=== PATIENT | female | born 1985 | race Caucasian/White ===

== ENCOUNTER → 2021-06-08 | Outpatient (CLI) | payer OTHER ==
[2021-06-08 11:21] LABS: BASO % 0.8 % (0.0-2.0); EOS # 0.5 K/mm3 (0.0-0.7); GRAN # 1.9 K/mm3 (1.4-6.5); GRAN % 39.1 % (42.2-75.2); HEMATOCRIT 40.6 % (37.0-47.0); HEMOGLOBIN 13.9 g/dl (12.5-16.0); LYMPH % 39.7 % (20.0-51.0); MEAN CELL VOLUME 89 fl (80.0-100.0); MEAN CORPUSCULAR HEMOGLOBIN 30 pg (27-31); MEAN CORPUSCULAR HGB CONC 34 g/dl (33.0-37.0); MEAN PLATELET VOLUME 10.2 fl (7.4-10.4); MONO # 0.5 K/mm3 (0.1-0.6); MONO % 9.4 % (1.7-9.3); PLATELET COUNT 244 K/mm3 (130-400); RED BLOOD COUNT 4.59 M/mm3 (4.10-5.30); REDCELL DISTRIBUTION WIDTH-CV 12.5 % (11.5-14.5)
[2021-06-08 11:54] LABS: ALANINE AMINOTRANSFERASE 13 U/L (0-55); ALBUMIN 4.2 gm/dL (3.5-5.0); ALKALINE PHOSPHATASE 36 U/L (40-150); AST,SGOT 19 U/L (5-34); BILIRUBIN,DIRECT 0.3 mg/dL (0.0-0.5); BILIRUBIN,TOTAL 0.7 mg/dL (0.2-1.2); CREATININE, serum 0.68 mg/dL (0.57-1.11); TOTAL PROTEIN 6.6 gm/dL (6.2-8.1)
[2021-06-08 12:11] LABS: C-REACTIVE PROTEIN < 0.02 mg/dL (0.00-0.50)
== END ==
LOC: COL.LAB 10:44
DX: M06.9 Rheumatoid arthritis, unspecified (principal)

== ENCOUNTER → 2021-06-08 | Outpatient (CLI) | payer OTHER | LOC: COL.LAB 10:50 | DX: Z80.41 Family history of malignant neoplasm of ovary (principal) ==

== ENCOUNTER → 2021-06-24 | Outpatient (CLI) | payer OTHER | LOC: COL.RAD 08:34 | DX: Z80.41 Family history of malignant neoplasm of ovary (principal) ==

== ENCOUNTER → 2021-12-24 | Outpatient (CLI) | payer OTHER | LOC: COL.RAD 12-23 10:00 | DX: K52.9 Noninfective gastroenteritis and colitis, unspecified (principal); Z80.41 Family history of malignant neoplasm of ovary | CPT/HCPCS: A9537 ==

== ENCOUNTER → 2022-01-11 | Outpatient (CLI) | payer OTHER | LOC: COL.LAB 10:07 | DX: R19.7 Diarrhea, unspecified (principal) ==

== ENCOUNTER → 2022-03-25 | Outpatient (CLI) | payer OTHER ==
[2022-03-25 17:05] LABS: MEAN CELL VOLUME 91 fl (80.0-100.0); MEAN CORPUSCULAR HEMOGLOBIN 30 pg (27-31); MEAN CORPUSCULAR HGB CONC 33 g/dl (33.0-37.0); MEAN PLATELET VOLUME 10.4 fl (7.4-10.4); PLATELET COUNT 265 K/mm3 (130-400); REDCELL DISTRIBUTION WIDTH-CV 12.2 % (11.5-14.5)
[2022-03-25 17:25] LABS: BAND 6 % (0-10); BASOPHIL 1 % (0-2); EOSINOPHIL 17 % (0-4); LYMPHOCYTE 31 % (20.0-51.0); NEUTROPHILS 40 % (42.0-75.2); PLATELET ESTIMATE NORMAL (NORMAL)
[2022-03-28 10:48] LABS: ALBUMIN 4.1 gm/dL (3.5-5.0); BILIRUBIN,DIRECT 0.1 mg/dL (0.0-0.5); BILIRUBIN,TOTAL 0.3 mg/dL (0.2-1.2); CREATININE, serum 0.71 mg/dL (0.57-1.11); TOTAL PROTEIN 6.8 gm/dL (6.2-8.1)
[2022-03-28 10:55] LABS: C-REACTIVE PROTEIN 0.02 mg/dL (0.00-0.50)
== END ==
LOC: COL.LAB 16:00
PROVIDERS: Family Medicine; Internal Medicine Rheumatology
DX: Z79.899 Other long term (current) drug therapy (principal)

== ENCOUNTER → 2022-03-25 | Outpatient (CLI) | payer OTHER | LOC: COL.LAB 16:28 | DX: E06.3 Autoimmune thyroiditis (principal); Z79.899 Other long term (current) drug therapy ==